=== PATIENT | female | born 1950 | race Caucasian/White ===

== ENCOUNTER 2018-04-08 20:48 | Emergency (ER) | payer MEDICARE, MEDICAID ==
[~2018-04-08] VITALS: Ht 162.6 cm; Wt 110.0 kg
[~2018-04-08 20:48] MED LIST: AMLO10 PO; BACT2OIN TOP; EFFE37.5 PO; FURO20TA PO; LEVO50TA4 PO; LOSA50TA PO; WELL150T PO
[2018-04-08 20:52] VITALS: BP 194/84; PULSE 69; RESP 18; TEMP 97.9; O2SAT 97
[2018-04-08] MEDS ORDERED: MOXI1TAB2 PO (21:23)
[2018-04-08] MEDS ORDERED: MUPI2%T TOPICAL (21:23)
--- NOTE | 2018-04-08 21:29 | PD ---
HPI Chief Complaint: Wound/Suture/Staple Re-Check Time Seen by Provider: 21:08 Travel History International Travel<30 days: No Contact w/Intl Traveler<30days: No Traveled to known affect area: No History of Present Illness HPI Patient is a 67-year-old female who presents the emergency room with complaints of a cat bite as well as a cat scratch. Patient reports that her own kitten scratched and bit her this afternoon. Reports that the bites are superficial but patient was concerned for infection. Patient reports that tetanus is up to date. No fever/chills. No other complaints. PFSH Past Medical History Cancer: No Cardiovascular Problems: Yes (HTN, Cholesterol) Diabetes: Yes Diminished Hearing: No Endocrine: Yes Gastrointestinal Disorders: No Genitourinary: No Hypertension: Yes Immune Disorder: No Implanted Vascular Access Dvce: No Musculoskeletal: No Neurologic: No Psychiatric: No Reproductive: No Respiratory: No Thyroid Disease: Yes Menopausal: Yes Past Surgical History AICD: No Arteriovenous Shunt: No Insulin Pump: No Joint Replacement: No Oral Surgery: Yes (TONSILS) Pacemaker: No Tonsillectomy: Yes Social History Alcohol Use: No Tobacco Use: Yes (1 PPD) Substance Use: No Allergies-Medications (Allergen,Severity, Reaction): Coded Allergies: penicillin G (Unverified Allergy, Severe, Anaphylaxis, 04/08/18) Reported Meds & Prescriptions Reported Meds & Active Scripts Active Bactroban 2% Oint (22 gm) (Mupirocin) 22 Gm Oint 2 % TOP BID after cleaning area with soap and water first then thoroughly dry. APPLY TO AFFECTED AREAS Norvasc (Amlodipine Besylate) 10 Mg Tab 10 Mg PO DAILY 30 Days Reported Furosemide 20 Mg Tab 20 Mg PO DAILY Losartan Potassium 50 MG (Losartan Potassium) 50 Mg Tab 50 Mg PO DAILY Effexor Xr (Venlafaxine HCl) 37.5 Mg Cap 37.5 Mg PO BID Levothyroxine 50 mcg (Levothyroxine Sodium) 50 Mcg Tab 50 Mcg PO DAILY Wellbutrin Sr (Bupropion HCl) 150 Mg Tab 150 Mg PO BID Review of Systems General / Constitutional: No: Fever Eyes: No: Visual changes HENT: No: Headaches Cardiovascular: No: Chest Pain or Discomfort Respiratory: No: Shortness of Breath Gastrointestinal: No: Abdominal Pain Genitourinary: No: Dysuria Musculoskeletal: No: Pain Skin: Positive Other (cat bite/scratch), No Rash Neurologic: No: Weakness Psychiatric: No: Depression Endocrine: No: Polydipsia Hematologic/Lymphatic: No: Easy Bruising Physical Exam Narrative GENERAL: Well-nourished, well-developed patient. SKIN: Focused skin assessment warm/dry. Patient with superficial wounds to the dorsal aspect of left hand, there is no deep laceration, there is no foreign body to left hand, there is no swelling, pulses intact HEAD: Normocephalic. EYES: No scleral icterus. No injection or drainage. NECK: Supple, trachea midline. No JVD or lymphadenopathy. CARDIOVASCULAR: Regular rate and rhythm without murmurs, gallops, or rubs. RESPIRATORY: Breath sounds equal bilaterally. No accessory muscle use. GASTROINTESTINAL: Abdomen soft, non-tender, nondistended. MUSCULOSKELETAL: No cyanosis, or edema. BACK: Nontender without obvious deformity. No CVA tenderness. Data Data Last Documented VS Vital Signs Date Time Temp Pulse Resp B/P (MAP) Pulse Ox O2 Delivery O2 Flow Rate FiO2 04/08/18 20:52 97.9 69 18 194/84 (120) 97 Orders Orders Mupirocin 2% Oint (Bactroban 2% Oint) (04/08/18 21:30) ^ Cleanse Wound With (04/08/18 21:19) Wound Care (04/08/18 21:19) Moxifloxacin (Avelox) (04/08/18 21:30) MDM Medical Decision Making Medical Screen Exam Complete: Yes Emergency Medical Condition: Yes Medical Record Reviewed: Yes Interpretation(s) Vital Signs Date Time Temp Pulse Resp B/P (MAP) Pulse Ox O2 Delivery O2 Flow Rate FiO2 04/08/18 20:52 97.9 69 18 194/84 (120) 97 Differential Diagnosis cat bite Narrative Course Patient is a 67-year-old female who presents the emergency room for evaluation of cat bite, patient reports that her kitten scratched and bit her this afternoon on her left hand. She did wash her hand extensively after the bite. Patient does not appear to have any foreign bodies in her hand. Scratch as well as a bite do appear superficial Plan to start patient on Avelox as she does have a penicillin allergy. Patient' s tetanus is up-to-date. Plan to have patient return to the emergency room in 48 hours when checked. Signs and symptoms of when to return to the emergency room was reviewed with patient in detail. Diagnosis Primary Impression: Cat bite of hand Qualified Codes: S61.452A - Open bite of left hand, initial encounter; W55.01XA - Bitten by cat, initial encounter Patient Instructions: General Instructions Additional Instructions: Please return to the ER or to your PCP's office in 48 hours for wound check Please follow up with your primary care doctor in 2-3 days Return to the ER if symptoms worsen or progress Return to the ER as needed Return to ER if you develop any signs of infection Please start antibiotics tomorrow as you did receive your first dose today Please keep wound clean with dressings Med/Other Pt SpecificInfo: Prescription(s) given Scripts Mupirocin Topical (Bactroban Topical) 22 Gm Cream 1 APPLIC TOPICAL BID for Mgmt Bacterial Infection, #1 TUBE 0 Refills Prov: Maia Starks DO 04/08/18 Moxifloxacin (Moxifloxacin) 400 Mg Tab 400 MG PO DAILY for Infection for 7 Days, #7 TAB 0 Refills Prov: Maia Starks DO 04/08/18 Disposition: 01 DISCHARGE HOME Condition: Stable Maia Starks DO April 08, 2018 21:29
[2018-04-08] MEDS ORDERED: MUPIROCIN 2% OINT 22 GM TUBE TOPICAL ONE (21:30)
[2018-04-08] MEDS ORDERED: MOXIFLOXACIN HYDROCHLORIDE 400 MG TAB PO ONE (21:30)
[2018-04-08] MEDS ORDERED: LOSA50TA PO (21:36)
[2018-04-08] MEDS ORDERED: VENL37.5 PO (21:36)
[2018-04-08] MEDS ORDERED: SIMV40TA PO (21:36)
[2018-04-08] MEDS ORDERED: BUPR150T3 (21:36)
[2018-04-08] MEDS ORDERED: GLIM2TAB PO (21:36)
[2018-04-08] MEDS ORDERED: FURO1TAB62 PO (21:36)
[2018-04-08] MEDS ORDERED: LEVO88TA2 PO (21:36)
[2018-04-08] MEDS ORDERED: LEVOFLOXACIN 750 MG TAB PO ONE (21:45)
== END 2018-04-08 22:20 | disposition home or self-care (01) ==
LOC: PHEFT 20:48
DX: S61.452A Open bite of left hand, initial encounter (principal); I10 Essential (primary) hypertension; E11.9 Type 2 diabetes mellitus without complications; F17.200 Nicotine dependence, unspecified, uncomplicated; W55.01XA Bitten by cat, initial encounter
CPT/HCPCS: 99283

== ENCOUNTER 2018-04-11 20:04 | Emergency (ER) | payer MEDICARE, MEDICAID ==
[~2018-04-11] VITALS: Ht 162.6 cm; Wt 109.1 kg
[~2018-04-11 20:04] MED LIST changes: -AMLO10 PO; -BACT2OIN TOP; +BUPR150T3; -EFFE37.5 PO; +FURO1TAB62 PO; -FURO20TA PO; +GLIM2TAB PO; -LEVO50TA4 PO; +LEVO88TA2 PO; +MOXI1TAB2 PO; +MUPI2%T TOPICAL; +SIMV40TA PO; +VENL37.5 PO; -WELL150T PO
[2018-04-11 20:12] VITALS: BP 177/74; PULSE 74; RESP 16; TEMP 97.6; O2SAT 94
--- NOTE | 2018-04-11 20:26 | PD ---
HPI Chief Complaint: Wound/Suture/Staple Re-Check Time Seen by Provider: 20:20 Travel History International Travel<30 days: No Contact w/Intl Traveler<30days: No Traveled to known affect area: No History of Present Illness HPI 67-year-old female presents emergency department for evaluation of a wound to her left hand that she sustained a couple of days ago. She was advised to return for a wound check. She denies any fevers or chills. Denies increased pain, swelling, red streaks up her arm. She says that the area has been tender but denies significant increase of pain. Says she has been using her medication as prescribed although the medication was changed to Cipro because of insurance reasons. She has no other complaints today. PFSH Past Medical History Depression: Yes Cancer: No Cardiovascular Problems: Yes (HTN, Cholesterol) High Cholesterol: Yes Diabetes: Yes Patient Takes Glucophage: No Diminished Hearing: No Endocrine: Yes Gastrointestinal Disorders: No Genitourinary: No Hypertension: Yes Immune Disorder: No Implanted Vascular Access Dvce: No Musculoskeletal: No Neurologic: No Psychiatric: No Reproductive: No Respiratory: No Thyroid Disease: Yes Tetanus Vaccination: < 5 Years Influenza Vaccination: Yes ?: Not Menopausal: Yes Past Surgical History AICD: No Arteriovenous Shunt: No Insulin Pump: No Joint Replacement: No Oral Surgery: Yes (TONSILS) Pacemaker: No Tonsillectomy: Yes Other Surgery: Yes (tumor L arm) Social History Alcohol Use: No Tobacco Use: Yes (1 PPD) Substance Use: No Allergies-Medications (Allergen,Severity, Reaction): Coded Allergies: penicillin G (Verified Allergy, Severe, Anaphylaxis, 04/11/18) Reported Meds & Prescriptions Reported Meds & Active Scripts Active Bactroban Topical (Mupirocin) 22 Gm Cream 1 Applic TOPICAL BID Moxifloxacin (Moxifloxacin HCl) 400 Mg Tab 400 Mg PO DAILY 7 Days Reported Bupropion HCl ER 24 HR (Bupropion HCl) 150 Mg Tab 150 Mg DAILY Effexor (Venlafaxine HCl) 37.5 Mg Tab 37.5 Mg PO Q12H Simvastatin 40 Mg Tab 40 Mg PO HS Glimepiride 2 Mg Tab 2 Mg PO DAILY Take with breakfast or first main meal Levothyroxine (Levothyroxine Sodium) 88 Mcg Tab 88 Mcg PO DAILY Losartan (Losartan Potassium) 50 Mg Tab 50 Mg PO DAILY Lasix (Furosemide) 20 Mg Tab 20 Mg PO DAILY Review of Systems Except as stated in HPI: all other systems reviewed are Neg Physical Exam Narrative GENERAL: Well-nourished, well-developed patient, in NAD SKIN: Focused skin assessment warm/dry. No rashes or lesions. Left hand dorsal aspect-linear laceration healing well. Mild dehiscence of the distal portion of the laceration without exudate. No erythema or edema. Full range of motion of fingers and wrists. Mild tenderness to palpation of the laceration. HEAD: Normocephalic. Atraumatic. EYES: No scleral icterus. No injection or drainage. NECK: Supple, trachea midline. No JVD. No meningismus. CARDIOVASCULAR: Regular rate and rhythm without murmurs, gallops, or rubs. RESPIRATORY: Breath sounds equal bilaterally. No accessory muscle use. No wheezes, rales, or rhonchi MUSCULOSKELETAL: No cyanosis, or edema. Data Data Last Documented VS Vital Signs Date Time Temp Pulse Resp B/P (MAP) Pulse Ox O2 Delivery O2 Flow Rate FiO2 04/11/18 20:12 97.6 74 16 177/74 (108) 94 MDM Medical Decision Making Medical Screen Exam Complete: Yes Emergency Medical Condition: Yes Differential Diagnosis Wound check, cellulitis, erysipelas, laceration Narrative Course 67-year-old female presents emergency department for evaluation of a wound to her left hand that she sustained a couple of days ago. She was advised to return for a wound check. She denies any fevers or chills. Denies increased pain, swelling, red streaks up her arm. She says that the area has been tender but denies significant increase of pain. Says she has been using her medication as prescribed although the medication was changed to Cipro because of insurance reasons. She has no other complaints today. Vital signs are stable. Physical exam findings demonstrate a well healing laceration to the dorsal aspect of the left hand. During dressing removal, a Steri-Strip was removed. A Steri-Strip was reapplied as there is an area of dehiscence. I advised patient to continue antibiotics that she was given. Follow-up with a primary care physician regarding further wound care. Patient appears to be healing well and I do not believe she requires any more checks here in the emergency department. She is advised to return for signs of infection. Diagnosis Primary Impression: Visit for wound check Referrals: Primary Care Physician Patient Instructions: Acute Wound Care (GEN), General Instructions Additional Instructions: Change the outer dressing daily or if the area becomes wet and dirty. Allow the strips to follow-up on the room. Continue the antibiotics as prescribed. If you develop signs of infection such as redness, swelling, increased pain return to the emergency department immediately. Disposition: 01 DISCHARGE HOME Condition: Stable Brinda Velasquez April 11, 2018 20:26
== END 2018-04-11 20:37 | disposition home or self-care (01) ==
LOC: PHEFT 20:04
DX: S61.412D Laceration without foreign body of left hand, subsequent encounter (principal); X58.XXXD Exposure to other specified factors, subsequent encounter; Z48.00 Encounter for change or removal of nonsurgical wound dressing
CPT/HCPCS: 99281